=== PATIENT | female | born 1950 | race Caucasian/White ===

== ENCOUNTER 2018-12-19 14:35 | Emergency (ER) | payer MEDICARE, MEDICAID ==
[~2018-12-19] VITALS: Ht 152.4 cm; Wt 63.5 kg
[~2018-12-19 14:35] MED LIST: ACIPHEX 20 MG T20 M1; ACIPHEX 20 MG T20 MG PO; ADULT LOW DOSE81 MG PO; ASPIR 8181 MG PO; BYETTA; CELEBREX 200 M200 MG PO; COZAAR100 MG PO; CYMBALTA60 MG PO; DIABETA 5MG TABL5 MG PO; FELBATOL600 MG/5 M PO; FENOFIBRATE200 MG PO; FISH OIL 1,001000 MG; GAS-X180 MG; GLUCOPHAGE XR500 MG PO; GLUCOTROL5 MG PO; LASIX 20 MG TAB20 MG PO; LEXAPRO 10 MG T10 MG PO; LISINOPRIL40 MG PO; LOPERAMIDE 2 MG2 M1 PO; LOPRESSOR PO; LOPRESSOR50 PO; MAGOX 400400 MG PO; METFORMIN HCL500 MG PO; NABUMETONE 750750 M1 PO; NIASPAN 500 MG500 M1 PO; NORCO 5-325 TA1 EACH PO; PERCOCET 10-321 EACH PO; PERCOCET 5-3251 EACH PO; POTASSIUM CHLO10 ME1 PO; SEE COMMENTS; SIMETHICON CHEW80 M1 PO; SIMVASTATIN40 MG PO; SIMVASTATIN80 MG PO; SKELAXIN 800 M800 M1 PO; TRIGLIDE160 M1; VESICARE10 M1 PO; VITAMIN B-12500 MCG PO; WELCHOL 625 MG625 MG PO; [UNRECOGNIZED DRUG - OTHER] PO
[2018-12-19] MEDS ORDERED: ERYTHROMYCIN E3.5 G3 OPHTHALMIC (15:02)
[2018-12-19 15:22] VITALS: BP 153/85
== END 2018-12-19 15:38 | disposition home or self-care (01) ==
LOC: M.ERS 14:35
DX: H10.89 Other conjunctivitis (principal); B96.89 Other specified bacterial agents as the cause of diseases classified elsewhere; F17.210 Nicotine dependence, cigarettes, uncomplicated; K58.9 Irritable bowel syndrome, unspecified; I10 Essential (primary) hypertension; E11.9 Type 2 diabetes mellitus without complications; E78.5 Hyperlipidemia, unspecified; M17.0 Bilateral primary osteoarthritis of knee; M79.7 Fibromyalgia; G25.81 Restless legs syndrome; F32.9 Major depressive disorder, single episode, unspecified; G47.30 Sleep apnea, unspecified; Z90.89 Acquired absence of other organs; Z90.49 Acquired absence of other specified parts of digestive tract; Z86.73 Personal history of transient ischemic attack (TIA), and cerebral infarction without residual deficits; Z88.8 Allergy status to other drugs, medicaments and biological substances; Z88.6 Allergy status to analgesic agent

== ENCOUNTER 2019-09-09 13:28 | Inpatient (IN) | payer MEDICARE, MEDICAID ==
[~2019-09-09] VITALS: Ht 152.4 cm; Wt 64.4 kg
[~2019-09-09 13:28] MED LIST changes: +ERYTHROMYCIN E3.5 G3 OPHTHALMIC
[2019-09-09 13:30] VITALS: BP 155/126; BP 209/99
[2019-09-09 14:10] LABS: ABSOLUTE MONOCYTES 0.8 thou/uL (0.0-1.2); ABSOLUTE NEUTROPHILS 4.9 thou/uL (1.6-8.1); BASOPHILS 0.3 %; HEMATOCRIT 42.5 % (37.0-47.0); HEMOGLOBIN 14.4 gm/dL (12.0-15.0); LYMPHOCYTES 15.4 %; MCH 28.6 pg (26.0-34.0); MCHC 33.8 g/dL (28.0-37.0); MCV 84.5 fL (80.0-100.0); MONOCYTES 11.7 %; MPV 9.9 fl. (7.2-11.1); NUCLEATED RBCS 0 /100WBC; PLATELET COUNT* 154 thou/uL (150-400); POLYS 72.6 %; RBC 5.02 mil/uL (4.20-5.00); RDW-CV 15.5 % (10.5-14.5); WBC 6.8 thou/uL (4.0-11.0)
[2019-09-09 14:19] LABS: INR 1.2; PROTIME 12.2 Seconds (9.20-11.50)
[2019-09-09 14:21] LABS: CALCIUM 9.6 mg/dL (8.5-10.1); CREATININE 0.7 mg/dL (0.6-1.3); POTASSIUM 3.1 mmol/L (3.5-5.1)
[2019-09-09 14:25] LABS: ALBUMIN 2.6 g/dL (3.4-5.0); TOTAL BILIRUBIN 0.7 mg/dL (<0.1-1.0); TOTAL PROTEIN 6.9 g/dL (6.4-8.2)
[2019-09-09 16:31] LABS: CHOLESTEROL 67 mg/dL (<200); HDL CHOLESTEROL 12 mg/dL (>40); LDL CHOLESTEROL 33 mg/dL (<100); SERUM ASSESSMENT Clear; TC:HDL 5.6 Ratio (Not establshd); TRIGLYCERIDE 113 mg/dL (<150); VLDL 23 mg/dL (<40)
[2019-09-09 16:35] LABS: INFLUENZA A ANTIGEN Positive (Negative); INFLUENZA B ANTIGEN Negative (Negative)
[2019-09-09 20:10] VITALS: BP 179/72
[2019-09-09 20:30] VITALS: BP 176/80
[2019-09-10] VITALS: BP 160/72
[2019-09-10 02:07] LABS: GLYCOHEMOGLOBIN (HGB A1C) 11.5 % (4.8-5.6)
[2019-09-10 04:00] VITALS: BP 170/79
--- NOTE | 2019-09-10 06:07 | NUR ---
PT ADMITTED TO FLOOR AT 2009. NO REPORT OF PAIN BY PT. ASSESSMENT COMPLETED AT BEDSIDE, PLEASE SEE CHARTING, PT IS POOR HISTORIAN. MEDICATIONS ADMINISTERED PER MAR. CURRENTLY ASLEEP IN BED WITH BED ALARM ON AND CALL LIGHT WITHIN REACH.
[2019-09-10 08:00] VITALS: BP 156/66
--- NOTE | 2019-09-10 10:25 | NUR ---
assumed pt care report received from nurse. pt is aox2 forgetful. tracing sinus rythm on alarm security or surveillance monitor. on 6 l nc. o2 saturation is 99%. on bedrest. iv fluid infusing at 100 per hour through right wrist. on clear liquid diet. skin is intact. new iv placed in left hand. iv abx given. pt had US of abdomen this am. isolation maintained. flu medicine given. accucheck. insulin given. pt assisted with feeding this am.
[2019-09-10 10:33] LABS: HEMATOCRIT 38.2 % (37.0-47.0); HEMOGLOBIN 12.8 gm/dL (12.0-15.0); MCH 28.2 pg (26.0-34.0); MCHC 33.5 g/dL (28.0-37.0); MCV 84.2 fL (80.0-100.0); MPV 9.7 fl. (7.2-11.1); NUCLEATED RBCS 0 /100WBC; PLATELET COUNT* 176 thou/uL (150-400); RBC 4.54 mil/uL (4.20-5.00); RDW-CV 15.6 % (10.5-14.5)
[2019-09-10 10:46] LABS: ALBUMIN 2.1 g/dL (3.4-5.0); CALCIUM 9.1 mg/dL (8.5-10.1); CREATININE 0.8 mg/dL (0.6-1.3); MAGNESIUM 1.2 mg/dL (1.8-2.4); PHOSPHORUS* 1.6 mg/dL (2.5-4.9); TOTAL BILIRUBIN 0.4 mg/dL (<0.1-1.0); TOTAL PROTEIN 6.1 g/dL (6.4-8.2)
[2019-09-10 10:54] LABS: POTASSIUM 2.6 mmol/L (3.5-5.1)
[2019-09-10 11:32] LABS: ABSOLUTE MONOCYTES 0.2 thou/uL (0.0-1.2); ABSOLUTE NEUTROPHILS 3.8 thou/uL (1.6-8.1); ANISOCYTOSIS Occasional; ATYPICAL LYMPHS 7 %; PLATELET ESTIMATE ADEQUATE
--- NOTE | 2019-09-10 13:57 | NUR ---
PT REPOSITIONED ROUTINELY. PT ASSISTED WITH FEEDING. K AND MAG LEVELS ARE LOW. K AND MAG REPLACEMENT GIVEN TO PATIENT. NO FURTHE COMPLAINT. WILL CONTINUE TO MONITOR PT.
--- NOTE | 2019-09-10 13:58 | NUR ---
PT CAHNGED TO MEDSUR STATUS ORDERED. HEART MONITOR RETRIEVED
--- NOTE | 2019-09-10 14:46 | NUR ---
2ND DOSE OF K AND MAG REPLACEMENT GIVEN TO PT
[2019-09-10 16:13] VITALS: BP 142/58
--- NOTE | 2019-09-10 18:22 | NUR ---
ASSUMED CARE OF PT AT 1500. REPORT RECEIVED FROM TANK CHAVIRA. THIS RN AGREES WITH PREVIOUS GLASS BLOWING INSTRUCTOR. PT IN DROPLET PRECAUTIONS FOR INFLUENZA. IVF. MARSHALL TO DEPENDENT DRAINAGE. MED SURG STATUS. ON 6L NC SAT 92%. POTASSIUM AND MAGNESIUM BEING REPLACED PER ELECTROLYTE PROTOCOL. REFER TO EMAR. PT TOLERATING CLEAR LIQUID DIET-REQUIRES ASSIST WITH ALL MEALS. MEDS CRUSHED IN APPLESAUCE PER SEP. PT REPOSITIONED EVERY 2 HOURS FOR COMFORT. HOURLY ROUNDING OBSERVED. BED IN LOW POSITION. BED ALARM IN PLACE. CALL LIGHT WITHIN REACH. WILL CONTINUE PLAN OF CARE.
[2019-09-10 19:45] VITALS: BP 138/57
[2019-09-10 23:06] LABS: HEPATITIS B SURFACE AG Negative (Negative)
[2019-09-11] VITALS: BP 215/93
[2019-09-11 01:02] LABS: HIV-1/HIV-2 ANTIBODY Non Reactive (Non Reactive)
[2019-09-11 01:24] VITALS: BP 169/78
--- NOTE | 2019-09-11 01:31 | NUR ---
ASSUMED CARE OF PT FROM DAY SHIFT PT VEYR AGITED PULLED IV OUT , AND PULLING A MARSHALL CATH, PT MOVED CLOSER TO NURSES STATION, AUDIBLE WHEEEZES NOTED SAT 89-91 % AT 6L NC , PT INCONTINET OF LOOSE STOOL . PT CLEAN AND LINES CHANGED, PT DRINKING LOTS OF PO FLUID 1150 BY 2100. [address] CARLSON PAGED AND NOTIFED OF PT STAUS ORDERS RECIEVED. IV ATIVAN GIVEN AND IV FLUIDS STOPPED. PT APPEARS TO NE RESTING WELL . BP WAS 215/93 IV HYDRALZINE GIVEN PRESCRIBED. PT BP DECREASED WILL CONITNUE TO MONITOR CLOSELY AND REPORT ABNORMAL CHANGES.
--- NOTE | 2019-09-11 04:38 | NUR ---
PT SLEPT WELL AFTER IV ATIVAN GIVEN, RESTED WELL THROUGHUT HOURLY ROUNDS, WILL CONTINUE WITH CURRENT PLAN OF CARE AND WILL REPORT CHANGES
[2019-09-11 07:51] LABS: HEMATOCRIT 38.3 % (37.0-47.0); MCH 27.9 pg (26.0-34.0); MCHC 33.9 g/dL (28.0-37.0); MCV 82.4 fL (80.0-100.0); MPV 9.6 fl. (7.2-11.1); RBC 4.65 mil/uL (4.20-5.00); RDW-CV 15.3 % (10.5-14.5); WBC 6.4 thou/uL (4.0-11.0)
[2019-09-11 08:07] LABS: ALBUMIN 2.1 g/dL (3.4-5.0); CALCIUM 9.1 mg/dL (8.5-10.1); CREATININE 0.6 mg/dL (0.6-1.3); MAGNESIUM 1.2 mg/dL (1.8-2.4); PHOSPHORUS* 0.5 mg/dL (2.5-4.9); POTASSIUM 3.5 mmol/L (3.5-5.1)
[2019-09-11 09:25] VITALS: BP 186/86
[2019-09-11 15:57] VITALS: BP 161/73
--- NOTE | 2019-09-11 19:34 | NUR ---
PATIENT AWAKE IN BED. PATIENT FREQUENTLY TURNING AND REPOSITIONING SELF. ALL SAFETY MEASURES MAINTAINED. PATIENT'S NEPHEW MARCI ELISA VISITED PATIENT THIS AFTERNOON. PATIENT CONFIRMED TO ADD HIM AUTHORIZED CONTACT. PATIENT DENIES FURTHER NEEDS AT THIS TIME.
[2019-09-11 20:00] VITALS: BP 156/49
[2019-09-12 04:08] LABS: HEMATOCRIT 39.3 % (37.0-47.0); HEMOGLOBIN 13.4 gm/dL (12.0-15.0); MCHC 34.1 g/dL (28.0-37.0); MCV 82.2 fL (80.0-100.0); MPV 9.3 fl. (7.2-11.1); RBC 4.78 mil/uL (4.20-5.00); RDW-CV 15.5 % (10.5-14.5); WBC 6.4 thou/uL (4.0-11.0)
[2019-09-12 04:35] LABS: ALBUMIN 2.2 g/dL (3.4-5.0); CALCIUM 9.7 mg/dL (8.5-10.1); CREATININE 0.5 mg/dL (0.6-1.3); MAGNESIUM 1.1 mg/dL (1.8-2.4); TOTAL BILIRUBIN 0.7 mg/dL (<0.1-1.0); TOTAL PROTEIN 6.6 g/dL (6.4-8.2)
[2019-09-12 08:00] VITALS: BP 172/76
--- NOTE | 2019-09-12 15:53 | NUR ---
Pt lives alone at [facility]. Pt is not able to answer assessment questions very well due to confusion and weakness. MARIBEL spoke with Akiko from [facility] ph [phone] who was responding to Hotline call about pt safety. [facility] has been following pt and explained that pt also has had in home services 5 days a week. Akiko was not aware if pt has DPOA or any family available but plans to investigate and will inform SW. SW/CM to follow to determine if gaurdianship necessary due to pt cognition however, Akiko says that dementia is not in pt history and this was surprising to her that pt was so confused. Possible for pt cognition to improve? SW/CM to continue to follow to assist with safe dc planning.
[2019-09-12 16:00] VITALS: BP 176/84
--- NOTE | 2019-09-12 16:20 | EKG ---
[place] [address] ELECTROCARDIOGRAM REPORT Name: JUANILASHONDA Room: [address] ADM IN .R.#: [id number] Admission: 09/09/19 Attend Phys: Davie vallejo Sa Discharge: Date of : 54 Date of Service: 09/09/19 1411 Report #: [id number] THIS REPORT FOR: //name// [facility] ED Test Date: 2019-09-09 Test Time: 14:11:08 Pat Name: LASHONDA GLORIA Department: Room: [facility] Gender: F Lye Bath Operator: : [id number] Requested By: Merlin Smallwood Order Number: [id number] MD: Андрей Potts Measurements Intervals [place] Rate: 98 P: 58 RI: 144 QRS: 42 QRSD: 93 T: 16 QT: 362 QTc: 463 Interpretive Statements Sinus rhythm Minimal ST depression, anterolateral leads Compared to ECG 08/14/2014 12:52:54 ST (T wave) deviation now present Electronically Signed On 09-12-2019 16:19:43 CDT by Андрей Potts [email or web address] <ELECTRONICALLY SIGNED> By: Андрей Potts MD, FACC 09/12/19 1619 1411 1411 Андрей Potts MD, [facility] /EPI
[2019-09-12 20:00] VITALS: BP 134/82
[2019-09-13 00:20] LABS: URINE BILIRUBIN NEGATIVE (Negative); URINE BLOOD 2+ (Negative); URINE CLARITY CLEAR; URINE COLOR YELLOW; URINE GLUCOSE-RANDOM 2+ (Negative); URINE KETONES 1+ (Negative); URINE LEUKOCYTES-REFLEX NEGATIVE (Negative); URINE NITRITE-REFLEX NEGATIVE (Negative); URINE PROTEIN TRACE (Negative); URINE UROBILINOGEN 0.2 E.U./dl (0.2-1.0)
[2019-09-13 01:19] LABS: HYALINE CASTS 0-3 Few /LPF (None Seen); SQUAMOUS NONE SEEN /LPF (0-3)
[2019-09-13 01:20] LABS: BACTERIA-REFLEX 1-9 Few /HPF (None Seen); CRYSTALS None Seen /LPF (None Seen); URINE RBC 3-10 Few /HPF (0-2); URINE WBC-REFLEX 0-5 Rare /HPF (0-5)
--- NOTE | 2019-09-13 06:49 | NUR ---
ASSUMED CARES AT 1920. ALERT AND ORIENTED TO SELF. CONFUSED. O2 2L NC. TAKES FLUIDS WELL. RESTLESS ALL NIGHT AND TAKES OFF COVERS AND GOWN CONSTANTLY. NO ATTMEPTS TO GET OUT OF BED THOUGH. URINARY AND STOOL INCONTINENCE. REMAINS OF DROPLET PRECAUTIONS. PILLS CRUSHED IN APPLESAUCE. SLEPT VERY LITTLE.
[2019-09-13 07:50] VITALS: BP 164/87
--- NOTE | 2019-09-13 10:49 | NUR ---
AG HAGAN FROM THE [facility] OF [facility]IOR [facility] [phone] CALLED WANTING STATUS OF PATIENT. SHE STATED THAT SHE DID NOT LOCATE ANYONE THAT WAS OR COULD BE A DPOA FOR THE PATIENT. STATED THAT PATIENT'S MENTAL STATUS OF CONFUSION, ETC., IS NOT TYPICAL AND WOULD LIKE TO HAVE AN UPDATE.
--- NOTE | 2019-09-13 13:05 | NUR ---
PT'S NEPHEW HERE AT THIS TIME. NEPHEW STATES HE IS PT'S ONLY FAMILY AND HE CHECKS IN ON HER EVERY DAY. NEPHEW STATES HE COOKS HER MEALS AND HELPS CLEAN THE HOUSE AND TAKE CARE OF HER PETS. NEPHEW STATES PT HAS ASKED HIM TO BE HER DPOA, BUT DIDN'T GET THE PAPERWORK COMPLETED. NEPHEW STATES PT'S BASELINE IS ALERT AND ORIENTED AND WALKS AROUND THE HOTEL ROOM. NEPHEWS NAME AND NUMBER ON AUTHORIZED CONTACT LIST FOR FUTURE REFERENCE. NO OTHER CONCERNS AT THIS TIME. CLWR. WCTM.
--- NOTE | 2019-09-13 15:49 | NUR ---
ASSUMED CARE OF PT AROUND 0730 THIS AM. REFER TO ASSESSMENT. MAG BEING REPLACED PER PROTOCOL THIS SHIFT. STOOL SPECIMEN SENT TO TEST FOR C-DIFF D/T MULTIPLE LOOSE STOOLS THIS SHIFT. PT'S NEPHEW AT BEDSIDE THIS SHIFT. DIET ADVANCED TO MECHANICAL GROUND, CARB CONTROL. NO OTHER CONCERNS AT THIS TIME. CLWR. WCTM.
[2019-09-13 17:30] VITALS: BP 102/64
[2019-09-13 21:18] VITALS: BP 129/79
--- NOTE | 2019-09-14 04:46 | NUR ---
PATIENT ALERT/ORIENTED TO NAME. PT INCONTINENT OF BOWEL AND BLADDER. PT WITH TOTAL BED CHANGE X2. PT ABLE REPOSITION HERSELF IN BED. PT WITH FLUIDS/ANTIBIOTICS INFUSING PER DR ORDER. PT WITH 2100 BLOOD SUGAR OF 190; INSULIN GIVEN DOCUMENTED. PT IS ON O2 @ 2 LITERS PER NASAL CANNULA BUT REMOVES IT OFTEN. SATS ON ROOM AIR IS 92-94%. PT WITH REDNESS IN ALAN AREA. FREQUENTLY USED ITEMS AND CALL LIGHT WITHIN REACH. SIDERAILS UPX4 AND BED ALARM ON. PT REMAINS IN DROPLET ISOLATION. WILL CONTINUE TO MONITOR.
[2019-09-14 05:26] LABS: HEMATOCRIT 41.8 % (37.0-47.0); HEMOGLOBIN 14.1 gm/dL (12.0-15.0); MCHC 33.6 g/dL (28.0-37.0); MCV 83.1 fL (80.0-100.0); RBC 5.03 mil/uL (4.20-5.00); RDW-CV 16.1 % (10.5-14.5)
[2019-09-14 05:47] LABS: ALBUMIN 2.3 g/dL (3.4-5.0); CALCIUM 9.9 mg/dL (8.5-10.1); CREATININE 0.7 mg/dL (0.6-1.3); MAGNESIUM 1.7 mg/dL (1.8-2.4); POTASSIUM 3.2 mmol/L (3.5-5.1); TOTAL BILIRUBIN 0.5 mg/dL (<0.1-1.0); TOTAL PROTEIN 6.6 g/dL (6.4-8.2)
[2019-09-14 07:45] VITALS: BP 132/64
--- NOTE | 2019-09-14 11:16 | NUR ---
SW called [facility] to check on status of investigation into pt safety and left a message for nurse outreach case manager to return call. SW also left message for Dr Bach to clarify needs due to confirmation of pt nephew being pt contact now. And also possibility that pt cognition will improve back to baseline? Would need 2 doctors certifying pt incompetent and whether this is temporary or permanent. SW to continue to follow to assist with safe dc planning.
[2019-09-14 15:30] VITALS: BP 125/85
--- NOTE | 2019-09-14 17:08 | NUR ---
PATIENT RESTING IN BED. PATIENT IS CONFUSED. PATIENT PULLED OUT IV THIS AFTERNOON, NEW IV STARTED. PATIENT WAS SEEN BY OCCUPATIONAL AND PHYSICAL THERAPIES. PATIENT HAS FAIR APPETITE WITH FEEDING ASSISTANCE NEEDED. PATIENT HAS BEEN INCONTINENT OF BOWEL AND BLADDER. PATIENT DENIES ANY NEEDS AT THIS TIME. BED ALARM ON. CALL LIGHT WITHIN REACH.
--- NOTE | 2019-09-14 17:28 | CON ---
[address] [address] CONSULTATION Name: JUANILASHONDA Robbie Room: [address] IN M.R.#: [id number] Admission: 09/09/19 Attend Phys: Davie Pitts Discharge: Date of : 54 Report #: [id number] THIS REPORT FOR: //name// cc: SUDHA Woodard family physician/PCP SUDHA - Yamilet family physician/PCP ~ THIS REPORT FOR: //name// CC: SUDHA physician/PCP Davie Bach DICTATED BY: Denisse VALLE DATE OF SERVICE: 09/14/2019 PRIMARY CARE PHYSICIAN: None. Please note at the time of this dictation, the patient was seen and physically examined by myself. REASON FOR CONSULTATION: Elevated LFTs. HISTORY OF PRESENT ILLNESS: This is a 69-year-old female who presented to the Emergency Room via EMS. It appears over the past 5 weeks, she has been living in the [facility] and a bystander noticed that she had not been taking care of herself. She was found in her own feces and was staying in the room and also had some animals, dogs, in there with feces and urine noted in the room as well. The patient is confused. She is unable to carry on the conversation. Most of the information is obtained from her chart and previous admission. ALLERGIES: SINEMET, IBUPROFEN, TETRACYCLINE, AND REGLAN. PAST MEDICAL HISTORY: The patient has congenital blindness from , hypertension, hyperlipidemia, type 2 diabetes, history of a stroke, and TIA. PAST SURGICAL HISTORY: Cholecystectomy and right ankle fracture. FAMILY HISTORY: Noncontributory. SOCIAL HISTORY: Stated no alcohol, tobacco, or illegal drug use. REVIEW OF SYSTEMS: A 12-point review of systems is essentially negative except what is mentioned in the HPI. PHYSICAL EXAMINATION: VITAL SIGNS: Temperature 36.9, pulse 89, respirations 16, and blood pressure 132/64. [place] [address] CONSULTATION Name: LASHONDA GLORIA Room: [address] IN [facility]#: [id number] Admission: 09/09/19 Attend Phys: Davie Pitts Discharge: Date of : 54 Report #: [id number] HEART: Regular rate and rhythm. LUNGS: Coarse throughout. ABDOMEN: Soft. Positive bowel sounds in all 4 quadrants with no masses or tenderness noted. DIAGNOSTIC DATA: Ultrasound showed enlarged liver and borderline spleen with a previous cholecystectomy. LABORATORY DATA: Hemoglobin is 14.1, white count is 9, and platelets 370. GFR is 83. Total bilirubin 0.5, alkaline phosphatase 189, ALT 213, and AST is 79. She was positive for the flu. PT 12.2 and INR is 1.2. ASSESSMENT: 1. Elevated LFTs. 2. Hepato and splenomegaly noted. 3. Positive for influenza. 4. Pneumonia. 5. Confusion. PLAN: 1. FAYE, ASMA, AMA, and AFP. 2. Further recommendations to be made once the above have been noted. Thank you for allowing us to participate in this patient's care. Please do not hesitate to call with any questions in regard to this consult. <ELECTRONICALLY SIGNED> By: Elaina Candelario MD 09/14/19 1728 1141 [id number] Candelario MD /nt
[2019-09-14 23:00] VITALS: BP 138/67
[2019-09-15 04:01] LABS: HEMATOCRIT 38.4 % (37.0-47.0); HEMOGLOBIN 12.7 gm/dL (12.0-15.0); MCH 27.5 pg (26.0-34.0); MCHC 32.9 g/dL (28.0-37.0); MCV 83.5 fL (80.0-100.0); MPV 9.2 fl. (7.2-11.1); RBC 4.61 mil/uL (4.20-5.00); RDW-CV 15.9 % (10.5-14.5); WBC 7.5 thou/uL (4.0-11.0)
--- NOTE | 2019-09-15 04:14 | NUR ---
PATIENT AWAKE OFF AND ON DURING THIS SHIFT. PT ORIENTED TO PERSON, CONFUSED AND FORGETFUL. PT PULLING AT HER IV. PT WITH REDNESS IN ALAN AREA. PT INCONTINENT OF BOWEL AND BLADDER. SEVERAL BED BATHS WERE GIVEN ALONG WITH CHANGING LINENS. PT WITH FLUIDS/ANTIBIOTICS INFUSING PER DR RAMIREZ. PT REMAINS IN DROPLET ISOLATION. WILL CONTINUE TO MONITOR.
[2019-09-15 04:33] LABS: ALBUMIN 2.2 g/dL (3.4-5.0); CREATININE 0.8 mg/dL (0.6-1.3); MAGNESIUM 1.6 mg/dL (1.8-2.4); POTASSIUM 4.2 mmol/L (3.5-5.1); TOTAL BILIRUBIN 0.6 mg/dL (<0.1-1.0); TOTAL PROTEIN 6.1 g/dL (6.4-8.2)
[2019-09-15 08:15] VITALS: BP 178/91
[2019-09-15 15:43] VITALS: BP 155/70
--- NOTE | 2019-09-15 17:01 | NUR ---
SW called and spoke with [facility] to follow up on pt dc planning and informed of pt contact, nephew, [facility] plans to follow up with him bc they had not heard of any family prior to this information provided by MARIBEL. Possible placement needed at dc, to be discussed with pt when pt is less confused. SW to continue to follow to assist with safe dc planning.
--- NOTE | 2019-09-15 17:26 | NUR ---
PATIENT RESTING IN BED. PATIENT IS CONFUSED AND COOPERATIVE. PATIENT REPOSITIONS SELF IN BED FREQUESTLY BUT DOES NOT TRY TO GET OUT OF BED INDEPENDENTLY. PATIENT IS UP WITH STANDBY ASSIST. PATIENT NEEDS ASSISTANCE WITH EATING, POOR APPETITE AT LUNCHTIME. PATIENT DENIES ANY PAIN. BED ALARM ON. WILL CONTINUE TO MONITOR.
[2019-09-15 20:00] VITALS: BP 142/75
--- NOTE | 2019-09-16 05:08 | NUR ---
PT SLEPT ON AND OFF OVERNIGHT. AO TO SELF, SITUATION AT TIMES IT SEEMS. MOSTLY CONFUSED, TAKING OFF GOWN. MOVES FREQUENTLY IN BED, PULLING LINENS OFF. INCONTINENT STOOL REQUIRING BED BATH X2 AND COMPLETE BED LINEN CHANGE. RFA SL IV HS ACCUCHECK 90, NO INSULIN GIVEN. MEDS WITH APPLESAUCE OVERNIGHGT. TYLENEOL GIVEN ONCE FOR COMPLAINT OF GENERALIZED PAIN. AM LABS ORDERED. ROOM AIR SAT 98%. OCC RHEA COUGH HEARD, RT TX GIVEN ORDERED. REMAINS ON DROPLET ISOLATION FOR +FLU. ALAN AREA RED, ALAN CARE GIVEN, BARRIER CREAM APPLIED AND SKIN LEFT RONALD. BED ALARM ON FOR SAFETY, CALL LITE IN EASY REACH.
[2019-09-16 09:08] LABS: ANA INTERPRETATION Negative (Negative)
[2019-09-16 11:44] LABS: HEMATOCRIT 40.3 % (37.0-47.0); HEMOGLOBIN 13.4 gm/dL (12.0-15.0); MCHC 33.3 g/dL (28.0-37.0); MCV 84.2 fL (80.0-100.0); MPV 9.1 fl. (7.2-11.1); RBC 4.79 mil/uL (4.20-5.00); RDW-CV 16.3 % (10.5-14.5); WBC 6.2 thou/uL (4.0-11.0)
[2019-09-16 12:21] LABS: ALBUMIN 2.7 g/dL (3.4-5.0); CALCIUM 10.4 mg/dL (8.5-10.1); CREATININE 0.8 mg/dL (0.6-1.3); MAGNESIUM 1.6 mg/dL (1.8-2.4); POTASSIUM 4.1 mmol/L (3.5-5.1); TOTAL BILIRUBIN 0.5 mg/dL (<0.1-1.0)
[2019-09-16 16:00] VITALS: BP 146/72
[2019-09-17] VITALS: BP 190/73
--- NOTE | 2019-09-17 05:20 | NUR ---
PATIENT SLEPT WELL DURING THIS SHIFT. PT IS ALERT, ORIENTED TO SELF AND CONFUSED. PT INCONTINENT OF BOWEL AND BLADDER. ALAN AREA EXCORIATED FROM STOOLS; BARRIER CREAM APPLIED. PT WITH BLOOD SUGAR AT 2100 OF 286; INSULIN GIVEN DOCUMENTED. PT WITH SALINE LOCK IN RT HAND. FREQUENTLY USED ITEMS AND CALL LIGHT WITHIN REACH. SIDERAILS UPX4 AND BED ALARM ON. PT REMAINS IN DROPLET ISOLATION. WILL CONTINUE TO MONITOR.
[2019-09-17 06:00] LABS: HEMATOCRIT 39.2 % (37.0-47.0); HEMOGLOBIN 12.9 gm/dL (12.0-15.0); MCH 27.9 pg (26.0-34.0); MCV 84.5 fL (80.0-100.0); MPV 8.3 fl. (7.2-11.1); RBC 4.64 mil/uL (4.20-5.00); RDW-CV 16.2 % (10.5-14.5); WBC 6.9 thou/uL (4.0-11.0)
[2019-09-17 06:05] LABS: CALCIUM 9.8 mg/dL (8.5-10.1); CREATININE 0.8 mg/dL (0.6-1.3); MAGNESIUM 1.4 mg/dL (1.8-2.4); POTASSIUM 4.2 mmol/L (3.5-5.1)
[2019-09-17 08:20] VITALS: BP 165/78
[2019-09-17 16:02] VITALS: BP 115/52
--- NOTE | 2019-09-17 16:31 | NUR ---
PATIENT ASSISTED WITH MEALS, INSULIN GIVEN ORDERED. MG 1.4 THIS AM, REAPLCED IV PER PROTOCOL. PATIENT TURNING SELF IN BED, REFUSED TO WEAR A GOWN. INCONTINENT OF URINE. IV SL. NO LOOSE STOOLS NOTED THIS SHIFT. REMAINS IN DROPLET PRECAUTIONS.
[2019-09-17 20:00] VITALS: BP 116/82
--- NOTE | 2019-09-18 06:48 | NUR ---
ASSUMED PATIENT CARE AT 1900. PATIENT ALERT AND ORIENTED TIMES FOUR, CAN BE CONFUSED AT TIMES. NO COMPLAINTS OF PAIN OR DISCOMFORT NOTED. MILK HANDLER AND HOURLY ROUNDING COMPLETED DOCUMENTED
[2019-09-18 07:15] VITALS: BP 129/82
[2019-09-18 18:16] VITALS: BP 122/59
[2019-09-18 19:43] VITALS: BP 111/35
--- NOTE | 2019-09-19 04:28 | NUR ---
ASSUMED CARE AT 0000H, ON NC AT 2LPM AND TOLERATED. NO DISTRESS. PT COMPLAIN OF ABD PAIN, TYLENOL GIVEN AND GAVE HER SOME CRACKERS. KEPT SAFE. CALL LIGHT WITH REACH. STILL WITH SOME CONFUSION. ORIENT ALL THE TIME. CONTINUE MONITORING AND TOWARD GOALS.
[2019-09-19 04:56] LABS: ALBUMIN 2.6 g/dL (3.4-5.0); CALCIUM 10.2 mg/dL (8.5-10.1); CREATININE 1.2 mg/dL (0.6-1.3); MAGNESIUM 1.6 mg/dL (1.8-2.4); POTASSIUM 3.9 mmol/L (3.5-5.1); TOTAL BILIRUBIN 0.4 mg/dL (<0.1-1.0); TOTAL PROTEIN 6.8 g/dL (6.4-8.2)
[2019-09-19 08:56] VITALS: BP 119/67
[2019-09-19] MEDS ORDERED: GLUCOPHAGE1000 MG PO (12:47)
[2019-09-19] MEDS ORDERED: LISINOPRIL5 MG PO (12:48)
[2019-09-19] MEDS ORDERED: ADULT LOW DOSE81 MG PO (12:49)
[2019-09-19] MEDS ORDERED: NOVOLOG100 UNIT/1 SUBQ (12:52)
[2019-09-19] MEDS ORDERED: GLYBURIDE 2.52.5 M1 PO (12:53)
[2019-09-19 12:57] VITALS: BP 119/67
--- NOTE | 2019-09-19 14:38 | NUR ---
CM INFORMED BY NURSING THAT THE PT'S NEPHEW REQUESTED TO SPEAK TO CM TO DISCUSS DISCHARGE PLANNING. PT'S NEPHEW INITIALLY WANTED TO DISCUSS THE PT RETURNING HOME WITH . CM INFORMED THE PT AND NEPHEW THAT AT THIS TIME THE PHYSICIAN IS RECOMMNEDING SNF THE PT NEEDS PHYSICAL AND OCCUPATIONAL THERAPY AND MEDICATION MANAGEMENT AT THIS TIME. PT AND NEPHEW CHOSE [facility] FOR SNF, AND PT COMPLETED VENDOR CHOICE FORM. PT REQUEST DPOA AND COMPLETED FORM WITH CM ASSISTANCE. DPOA FORM NOTARIZED, PT AND NEPHEW GIVEN COPIES AND A COPY IS PLACED ON THE CHART. CM SPOKE TO [facility] WITH [facility] [place] ADMISSIONS TO INFORM OF THE SNF REFERRAL AND FAXED THE PATIENT'S FACESHEET, H&P, LABS, AND PT/OT NOTES. CM AWAITING RETURN CALL FROM [facility] TO DISCUSS ABILITY TO ACCEPT THE PT.
[2019-09-19 16:00] VITALS: BP 130/62
--- NOTE | 2019-09-19 19:29 | NUR ---
ASSESSMENT COMPLETED DOCUMENTED THIS MORNING, PATIENT ALERT AND FOLLOWING VERBAL COMMANDS/DIRECTIONS WELL. ASSISTED TO BEDSIDE RECLINER AND TOLERATED WELL. "NEPHEW" MARCI IN THIS MORNING AND DECISION MADE FOR SNF PLACEMENT UPON DC FROM HOSPITAL, REFERRAL SENT TO [facility] PER CASE MGMT.
[2019-09-19 20:30] VITALS: BP 148/69
--- NOTE | 2019-09-20 06:17 | NUR ---
PATIENT SLEPT PART OF THE NIGHT. PATIENT HAD AN UPSET STOMACH ABOUT 0230 AND DID VOMIT A COUPLE OF TIMES. ZOFRAN WAS GIVEN WITH GOOD RELIEF. PATIENT IS POSSIBLY DISCHARGING TO A SKILLED FACILITY TODAY. WILL CONTINUE TO MONITOR.
[2019-09-20 08:00] VITALS: BP 157/59
[2019-09-20 16:00] VITALS: BP 144/70
--- NOTE | 2019-09-20 18:53 | NUR ---
ASSESSMENT COMPLETED DOCUMENTED THIS MORNING. PATIENT HAS REMAINED STABLE WITH NO CHANGES IN CONDITION NOTED. UP IN RECLINER AT THE BEDSIDE MOST OF THE DAY AND ASSISTED WITH ALL MEALS. AWAITING ACCEPTANCE AT SNF FOR PLACEMENT.
[2019-09-20 20:30] VITALS: BP 135/65
--- NOTE | 2019-09-21 05:47 | NUR ---
PT SLEPT WELL OVERNIGHT WITHOUT COMPLAINTS. NO STOOLS OVERNIGHT. ASKING FOR BEDPAN TO URINATE ONCE, INCONTINENT EPISODE X2 OVERNIGHT. NO IV ACCESS. ALAN AREA RED, IMPROVING, ALAN CARE GIVEN AND NYSTATIN POWDER APPLIED ORDERED. NO LABS THIS MORNING. BLIND. HS ACCUCHECK 196, INSULIN GIVEN. DISCHARGE PENDING TO [facility] CM FOLLOWING. CALLS OUT FOR HELP WHEN NEEDED.
[2019-09-21 07:50] VITALS: BP 151/58
--- NOTE | 2019-09-21 16:19 | NUR ---
MARIBEL received multiple calls from Shabnam with admissions of [place] SNFs and ultimately, [facility] willing to accept pt but requesting special admission category with [facility] involvement. MARIBEL spoke with Tanika with [facility] who plans to discuss with her supervisor title and assist with receiving [facility] special admission category permission/documentation. MARIBEL called Shabnam back to inform of pending document and Shabnam said that with that form, pt could be accepted at [facility] most likely tomorrow. MARIBEL/EDDIE to continue to follow to assist with finalizing safe dc plan.
--- NOTE | 2019-09-21 18:24 | NUR ---
PT AWAKE/ALERT VSS. PT INCONTINENT OF B/B. PT ACCUCHECK, INSULIN ADMINISTERED INDICATED. PT ASSISTED TO EAT AT MEALS. NO IV ACCESS, NONE REQUIRED AT THIS TIME. PT WAS UP FOR DC TO [facility], BUT WILL NEED TO WAIT UNTIL LATER DATE FOR FURTHER APPROVALS PER CASE MANAGEMENT. PT UP TO RECLINER FOR MEALS. YEAST/REDNESS NOTED TO GROIN, NYSTATIN APPLIED. PT RESTS IN ROOM WITH CALL LIGHT IN REACH. WILL CONTINUE TO MONITOR.
--- NOTE | 2019-09-21 18:40 | NUR ---
PT A&OX4 VSS. LIDOCAINE PATCH TO R FLANK FOR PAIN. PT UP TO BEDSIDE COMMODE AD SUNIL. PT C/O DYSPNEA UPON EXERTION. PT UP TO RECLINER WITH PILLOW FOR POSITIONING. IV TO RFA PATENT, C/D/I, SALINE LOCKED. DRESSINGS TO BLE C/D/I. PT TO RAD FOR CXR THIS AFTERNOON. PT REMAINS ON 2-3L OF 02 PER NASAL CANNULA. PT RESTS IN ROOM WITH CALL LIGHT IN REACH. WILL CONTINUE TO MONITOR.
[2019-09-21 19:30] VITALS: BP 105/65
--- NOTE | 2019-09-22 05:53 | NUR ---
PT ALERT & ORIENTED X3. FORGETFUL. VISION LOSS TO BILATERAL EYES. VSS ON RA. MEDS GIVEN EMAR. PT DENIES PAIN, N/V THIS SHIFT. PT SLEPT WELL THIS SHIFT. INCONTINENT OF B/B. NO BM NOTED THIS SHIFT. CALL LIGHT WITHIN REACH. HOURLY ROUNDINGS MADE. WILL CONTINUE TO MONITOR.
[2019-09-22 07:40] VITALS: BP 121/57
--- NOTE | 2019-09-22 17:06 | NUR ---
MARIBEL discussed with dc urban and regional planner to fax more referrals to SNFs as back up plan as [facility] facilities continue to back track their acceptance at this time but after Shabnam and [facility] admissions discussed with [facility], they agreed to accept pt after they receive fax receipt stating [id number] ABC have been compelted and received by [facility], then they would possible accept pt at that time. All other SNFs have declined at this time. MARIBEL spoke with Tanika at [facility] prior to [facility] and Tanika assisted with communication with [facility] to discuss case with [facility] to consider pt to their facility so now possible for pt to dc to SNF tomorrow pending [facility] forms received and facility final acceptance. MARIBEL to continue to follow to assist with finalizing safe dc plan to SNF.
--- NOTE | 2019-09-22 17:39 | NUR ---
PT AWAKE/ALERT ORIENTED TO PERSON. PT PLEASANT AND COOPERATIVE. PT HAS EPISODES OF CONFUSION, REMAINS BASELINE. PT INCONTINENT OF B/B. PT TO DC TO SNF WHEN PLACEMENT IS SECURED. CASE MANAGEMENT IS INVOLVED. REDNESS TO PERIAREA/GROIN PRESENT PRIOR TO THIS SHIFT, NYSTATIN APPLIED TO AFECTED AREA. PT HAS NO IV ACCESS, NONE NEEDED AT THIS TIME. PT IS ACCUCHECK WITH INSULIN ADMINSTERED INDICATED. PT DENIES PAIN, NAUSEA/VOMITING. PT UP TO RECLINER FOR MEALS. PT RESTS IN ROOM WITH CALL LIGHT IN REACH. WILL CONTINUE TO MONITOR.
[2019-09-22 19:20] VITALS: BP 134/86
--- NOTE | 2019-09-23 06:16 | NUR ---
PT ORIENTED TO SELF AND SITUATION. FORGETFUL. BLIND AT . PT TOOK PILLS WHOLE. PT SLEPT WELL THIS SHIFT. INCONTINENT OF BOWEL/BLADDER. CALL LIGHT WITHIN REACH. HOURLY ROUNDINGS MADE. WILL CONTINUE TO MONITOR.
[2019-09-23 08:20] VITALS: BP 141/67
[2019-09-23 09:39] VITALS: BP 155/65
--- NOTE | 2019-09-23 14:39 | NUR ---
CONFIRMED WITH CORNELIUS/LIAISON OF [facility] THAT THEY CAN ACCEPT PATIENT AND ARRANGED WHEELCHAIR TRANSPORTATION AT 16:00 TODAY, 09/23/19. NOTIFIED [employer]OM[employer]ACH[employer]ES SUPERVISOR AND NURSING UNIT. CHART COPY MADE. TALKED TO PATIENT AND LEFT VOICE MAIL MESSAGE FOR NEPHEWMARCI TO CALL ME REGARDING ARRANGEMENTS. DISCHARGE ORDERS AND SUMMARY FAXED. [facility] [phone]
--- NOTE | 2019-09-23 16:54 | NUR ---
CONTACTED AG HAGAN WITH THE DEPARTMENT OF [facility] AT [phone] TO NOTIFY HER OF PATIENT'S PLACEMENT AT [facility].
--- NOTE | 2019-09-23 18:10 | NUR ---
PT A&OX2, VSS. PT PLEASANT AND COOPERATIVE. PT INCONTINENT OF B/B. PT HAS NO IV ACCESS AT THIS TIME. PT UP TO RECLINER FOR MEALS. PT TAKES PILLS WHOLE NO DIFFICULTY. PT ON MECHANICAL SOFT DIET, PT CONSUMED LESS THAN 25% OF DINNER. PT ASSISTED BY TISSUE PACKER TO GET DRESSED AND PACK BELONGINGS. PT TRANSPORTED TO SNF BY [facility]. REPORT CALLED TO DAVID AT [facility].
== END 2019-09-23 17:45 | DRG 871 ==
LOC: M.ERS 13:28 → M.TBA-ER 15:50 → M.3W 15:50 → M.2W 15:50 → M.3W 09-10 19:07
PROVIDERS: Emergency Medicine; Internal Medicine; Nurse Practitioner Adult Health; ADMIT Family Medicine
DX: A41.9 Sepsis, unspecified organism (principal); E43 Unspecified severe protein-calorie malnutrition; J10.08 Influenza due to other identified influenza virus with other specified pneumonia; J15.9 Unspecified bacterial pneumonia; G92 Toxic encephalopathy; B17.9 Acute viral hepatitis, unspecified; E11.65 Type 2 diabetes mellitus with hyperglycemia; E78.5 Hyperlipidemia, unspecified; G25.81 Restless legs syndrome; F32.9 Major depressive disorder, single episode, unspecified; E87.6 Hypokalemia; I10 Essential (primary) hypertension; M15.8 Other polyosteoarthritis; H54.8 Legal blindness, as defined in USA; M47.9 Spondylosis, unspecified; K58.9 Irritable bowel syndrome, unspecified; Z60.2 Problems related to living alone; R41.81 Age-related cognitive decline; M79.7 Fibromyalgia; R16.2 Hepatomegaly with splenomegaly, not elsewhere classified; G47.30 Sleep apnea, unspecified; Z86.73 Personal history of transient ischemic attack (TIA), and cerebral infarction without residual deficits; Z90.49 Acquired absence of other specified parts of digestive tract; Z99.81 Dependence on supplemental oxygen; Z79.899 Other long term (current) drug therapy; Z79.82 Long term (current) use of aspirin; Z79.84 Long term (current) use of oral hypoglycemic drugs; Z88.1 Allergy status to other antibiotic agents; Z88.8 Allergy status to other drugs, medicaments and biological substances; Z68.27 Body mass index [BMI] 27.0-27.9, adult; Z87.891 Personal history of nicotine dependence